=== PATIENT | female | born 1980 | race Caucasian/White ===

== ENCOUNTER → 2016-07-18 | Outpatient (REF) | payer OTHER | LOC: M SFHCWAGY 09:18 | PROVIDERS: ATTEND Nurse Practitioner Women's Health | DX: Z12.4 Encounter for screening for malignant neoplasm of cervix (principal) ==

== ENCOUNTER 2016-10-12 13:31 | Emergency (ER) | payer OTHER, BC ==
[~2016-10-12] VITALS: Ht 152.4 cm; Wt 81.8 kg
[2016-10-12] MEDS ORDERED: HUMI40KI2 (13:40)
--- NOTE | 2016-10-12 14:49 | REP ---
Left ankle series: Four views. History: Left ankle injury. Comparison left ankle radiographs are from November 25, 2006. Findings: There is moderate anterolateral soft-tissue swelling. Ankle mortise is intact. No fracture is seen. Impression: Soft-tissue swelling. No fracture seen. Signed by Brandt Poon MD 10/12/2016 04:23 P
[2016-10-12 14:56] VITALS: BP 152/88
[2016-10-12] MEDS ORDERED: IBUPROFEN 600 MG TAB PO ONE (15:00)
== END 2016-10-12 15:06 | disposition home or self-care (01) ==
LOC: M ED 13:31
DX: S93.402A Sprain of unspecified ligament of left ankle, initial encounter (principal); W10.9XXA Fall (on) (from) unspecified stairs and steps, initial encounter; Y92.89 Other specified places as the place of occurrence of the external cause; Y93.01 Activity, walking, marching and hiking; Y99.0 Civilian activity done for income or pay; K50.90 Crohn's disease, unspecified, without complications; Z79.899 Other long term (current) drug therapy

== ENCOUNTER → 2017-01-03 | Outpatient (REF) | payer OTHER ==
[~2017-01-03] MED LIST: HUMI40KI2
== END ==
LOC: M SFHCCAPE 14:36
PROVIDERS: ATTEND Physician Assistant
DX: J02.9 Acute pharyngitis, unspecified (principal)

== ENCOUNTER → 2017-01-25 | Outpatient (CLI) | payer BC, OTHER ==
--- NOTE | 2017-01-25 17:06 | REP ---
CHEST X-RAY: CLINICAL: Dyspnea. Bronchitis. TECHNIQUE: PA and lateral. COMPARISON: 12/15/2011 The mediastinum and cardiac silhouette normal. Scoliosis identified. Lung cortes are clear without focal consolidation, effusion or pneumothorax. Coarsened interstitial markings may reflect bronchitis or reactive airway disease. Evidence for prior cholecystectomy. IMPRESSION: Coarsened interstitial markings may reflect bronchitis and/or chronic reactive airway disease. No focal consolidation.
== END ==
LOC: M CLY 08:46
PROVIDERS: ATTEND Physician Assistant
DX: J20.9 Acute bronchitis, unspecified (principal)

== ENCOUNTER 2017-02-02 08:23 | Emergency (ER) | payer BC, OTHER ==
[~2017-02-02] VITALS: Ht 152.4 cm; Wt 90.0 kg
[2017-02-02] MEDS ORDERED: PRED10PA2 PO (09:09)
[2017-02-02] MEDS ORDERED: BENZ100C5 PO (09:09)
[2017-02-02] MEDS ORDERED: DOXY-278 PO (09:09)
[2017-02-02] MEDS ORDERED: ONDANSETRON 4MG/2ML VIAL (J2405) IV ONE (09:30)
[2017-02-02] MEDS ORDERED: NS 1,000 ML IV ONE (09:30)
[2017-02-02 09:44] LABS: BASO % 0.3 % (0.0-1.0); EOS # 0.1 10^3/uL (0.0-0.50); EOS % 0.4 % (0.0-3.0); IMMATURE GRANULOCYTE % 1.3 % (0-0); LYMPH % 6.9 % (24.0-44.0); MEAN CORPUSCULAR HEMOGLOBIN 29.9 pg (27.0-33.0); MEAN CORPUSCULAR HGB CONC 33.3 g/dl (32.0-36.5); MEAN CORPUSCULAR VOLUME 89.7 fl (80.0-96.0); MONO # 0.8 10^3/uL (0.0-0.8); MONO % 5.9 % (0.0-5.0); NEUTROPHILS % 85.2 % (36.0-66.0); PLATELET COUNT, AUTOMATED 285 10^3/uL (150-450); RED CELL DISTRIBUTION WIDTH 13.6 % (11.5-14.5); WHITE BLOOD COUNT 14.1 10^3/uL (4.0-10.0)
[2017-02-02] MEDS ORDERED: MORPHINE 4 MG/ML 1ML SYRINGE IV ONE (09:45)
[2017-02-02 10:20] LABS: ALBUMIN 3.8 GM/DL (3.2-5.2); ALBUMIN/GLOBULIN RATIO 0.86 (1.00-1.93); ALKALINE PHOSPHATASE 51 U/L (45-117); ALT/SGPT 36 U/L (12-78); ANION GAP 9 MEQ/L (8-16); AST/SGOT 13 U/L (7-37); BILIRUBIN,TOTAL 0.8 MG/DL (0.2-1.0); BLOOD UREA NITROGEN 16 MG/DL (7-18); CALCIUM LEVEL 8.7 MG/DL (8.5-10.1); CARBON DIOXIDE LEVEL 26 MEQ/L (21-32); CHLORIDE LEVEL 106 MEQ/L (98-107); CREATININE FOR GFR 0.97 MG/DL (0.55-1.02); GLOMERULAR FILTRATION RATE > 60.0 (>60); GLUCOSE, FASTING 129 MG/DL (70-105); POTASSIUM SERUM 3.9 MEQ/L (3.5-5.1); SODIUM LEVEL 141 MEQ/L (136-145); TOTAL PROTEIN 8.2 GM/DL (6.4-8.2)
--- NOTE | 2017-02-02 10:44 | REP ---
KUB ABDOMEN AND PELVIS: Two KUB films of abdomen and pelvis are performed. There is no radiographic evidence of small bowel dilatation, with no radiographic evidence of obstruction. Metallic clips are seen in the right upper quadrant. There is a tiny phlebolith in the right pelvis. Visualized osseous structures appear unremarkable except for slight curvature of the thoracolumbar spine convex to the left. IMPRESSION: No evidence of bowel obstruction. Signed by Palomo Leong MD 02/02/2017 04:58 P
[2017-02-02] MEDS ORDERED: ZOFR4TAB3 PO (12:17)
[2017-02-02 12:23] VITALS: BP 124/67
== END 2017-02-02 12:26 | disposition home or self-care (01) ==
LOC: M ED 08:23
DX: A08.4 Viral intestinal infection, unspecified (principal); E86.0 Dehydration; K50.90 Crohn's disease, unspecified, without complications; Z79.52 Long term (current) use of systemic steroids; Z79.899 Other long term (current) drug therapy; Z79.2 Long term (current) use of antibiotics
CPT/HCPCS: 74000; 80053; 81001; 83690; 85025; 96374; 96375; 99284; J2405

== ENCOUNTER → 2017-03-14 | Outpatient (CLI) | payer BC, OTHER ==
[2017-03-16 08:07] LABS: QUANTIFERON GOLD TB Negative (Negative); TB Test (QFT) Antigen 0.02 IU/mL (.); TB Test (QFT) Mitogen >10.00 IU/mL (.); TB Test (QFT) Nil 0.02 IU/mL (.)
== END ==
LOC: M LAB 13:17
DX: K50.90 Crohn's disease, unspecified, without complications (principal)
CPT/HCPCS: 36415

== ENCOUNTER → 2017-07-24 | Outpatient (REF) | payer OTHER ==
[2017-07-27 14:16] LABS: HPV HYBRID CAPTURE II Negative (Negative)
== END ==
LOC: M SFHCWAGY 11:48
DX: Z12.4 Encounter for screening for malignant neoplasm of cervix (principal)

== ENCOUNTER → 2017-07-30 | Outpatient (REF) | payer OTHER | LOC: M SFHCCAPE 15:08 | DX: J02.9 Acute pharyngitis, unspecified (principal) ==

== ENCOUNTER 2017-09-06 06:47 | Emergency (ER) | payer BC, OTHER ==
[2017-09-06 07:26] LABS: BASO % 0.5 % (0.0-1.0); EOS # 0.3 10^3/uL (0.0-0.50); EOS % 4.1 % (0.0-3.0); HEMATOCRIT 39.9 % (36.0-47.0); HEMOGLOBIN 12.8 g/dl (12.0-15.5); IMMATURE GRANULOCYTE % 0.3 % (0-3.0); LYMPH # 1.7 10^3/uL (1.5-4.5); LYMPH % 26.1 % (24.0-44.0); MEAN CORPUSCULAR HEMOGLOBIN 27.7 pg (27.0-33.0); MEAN CORPUSCULAR HGB CONC 32.1 g/dl (32.0-36.5); MEAN CORPUSCULAR VOLUME 86.4 fl (80.0-96.0); MONO # 0.9 10^3/uL (0.0-0.8); NEUTROPHILS # 3.6 10^3/uL (1.8-7.7); PLATELET COUNT, AUTOMATED 321 10^3/uL (150-450); RED BLOOD COUNT 4.62 10^6/uL (4.00-5.40); RED CELL DISTRIBUTION WIDTH 13.2 % (11.5-14.5); WHITE BLOOD COUNT 6.6 10^3/uL (4.0-10.0)
[2017-09-06] MEDS: NS 1,000 ML IV (07:40)
[2017-09-06 07:43] LABS: ALBUMIN/GLOBULIN RATIO 0.79 (1.00-1.93); ALKALINE PHOSPHATASE 57 U/L (45-117); ALT/SGPT 23 U/L (12-78); ANION GAP 8 MEQ/L (8-16); AST/SGOT 16 U/L (7-37); BILIRUBIN,TOTAL 0.1 MG/DL (0.2-1.0); BLOOD UREA NITROGEN 16 MG/DL (7-18); CALCIUM LEVEL 8.4 MG/DL (8.5-10.1); CARBON DIOXIDE LEVEL 23 MEQ/L (21-32); CHLORIDE LEVEL 112 MEQ/L (98-107); CREATININE FOR GFR 0.69 MG/DL (0.55-1.30); GLOMERULAR FILTRATION RATE > 60.0 (>60); GLUCOSE, FASTING 114 MG/DL (70-100); LIPASE 195 U/L (73-393); POTASSIUM SERUM 4.5 MEQ/L (3.5-5.1); SODIUM LEVEL 143 MEQ/L (136-145); TOTAL PROTEIN 6.8 GM/DL (6.4-8.2)
[2017-09-06] MEDS: ONDANSETRON 4MG/2ML VIAL (J2405) IV (07:45)
[2017-09-06] MEDS: KETOROLAC 30 MG/ML VIAL (J1885) IV (07:45)
[2017-09-06 08:10] LABS: KETONE, URINE AUTO RFX NEGATIVE (NEGATIVE); LEUKOCYTE ESTERASE UR AUTO RFX 3+ (NEGATIVE); MUCUS, URINE RFX SMALL (NEGATIVE); NITRITE, URINE AUTO RFX NEGATIVE (NEGATIVE); RBC, URINE AUTO RFX 9 /HPF (0-3); SPECIFIC GRAVITY UR AUTO RFX 1.013 (1.002-1.035); SQUAM EPITHELIAL CELL UR AURFX 3 /HPF (0-6); WBC, URINE AUTO RFX 9 /HPF (0-3)
[2017-09-06] MEDS ORDERED: ISOVUE-370 76% 100ML VIAL (Q9967) As Ordered (08:12)
== END 2017-09-06 10:42 | disposition home or self-care (01) ==
LOC: M ED 06:47
DX: K50.00 Crohn's disease of small intestine without complications (principal); K76.89 Other specified diseases of liver
CPT/HCPCS: J2405

== ENCOUNTER → 2017-09-25 | Outpatient (REF) | payer OTHER ==
[2017-09-25 16:54] LABS: APPEARANCE, URINE HAZY (CLEAR); BACTERIA, URINE AUTO NEGATIVE (NEGATIVE); BILIRUBIN, URINE AUTO NEGATIVE (NEGATIVE); BLOOD, URINE BLOOD 1+ (NEGATIVE); CALCIUM OXALATE CRYSTALS MODERATE; COLOR, URINE YELLOW (YELLOW); GLUCOSE, URINE (UA) AUTO NEGATIVE (NEGATIVE); KETONE, URINE AUTO NEGATIVE (NEGATIVE); LEUKOCYTE ESTERASE, URINE AUTO NEGATIVE (NEGATIVE); MUCUS, URINE SMALL (NEGATIVE); NITRITE, URINE AUTO NEGATIVE (NEGATIVE); PROTEIN, URINE AUTO NEGATIVE (NEGATIVE); RBC, URINE AUTO 0 /HPF (0-3); SPECIFIC GRAVITY URINE AUTO 1.025 (1.002-1.035); SQUAMOUS EPITHELIAL CELL UR AU 1 /HPF (0-6); UROBILINOGEN, URINE AUTO 0.2 mg/dL (0.0-2.0); WBC, URINE AUTO 1 /HPF (0-3)
== END ==
LOC: M SFHCCAPE 11:22
DX: R10.9 Unspecified abdominal pain (principal)

== ENCOUNTER → 2017-10-02 | Outpatient (REF) | payer OTHER ==
[2017-10-02 17:25] LABS: BASO % 0.2 % (0.0-1.0); EOS # 0.1 10^3/uL (0.0-0.50); EOS % 0.8 % (0.0-3.0); HEMATOCRIT 39.5 % (36.0-47.0); HEMOGLOBIN 12.5 g/dl (12.0-15.5); IMMATURE GRANULOCYTE % 0.6 % (0-3.0); LYMPH # 2.9 10^3/uL (1.5-4.5); LYMPH % 21.6 % (24.0-44.0); MEAN CORPUSCULAR HEMOGLOBIN 27.9 pg (27.0-33.0); MEAN CORPUSCULAR HGB CONC 31.6 g/dl (32.0-36.5); MEAN CORPUSCULAR VOLUME 88.2 fl (80.0-96.0); MONO # 0.8 10^3/uL (0.0-0.8); MONO % 5.9 % (0.0-5.0); NEUTROPHILS # 9.5 10^3/uL (1.8-7.7); NEUTROPHILS % 70.9 % (36.0-66.0); PLATELET COUNT, AUTOMATED 311 10^3/uL (150-450); RED BLOOD COUNT 4.48 10^6/uL (4.00-5.40); WHITE BLOOD COUNT 13.3 10^3/uL (4.0-10.0)
[2017-10-02 17:49] LABS: FOLATE 6.9 NG/ML; TOTAL 25(OH) VITAMIN D 22.1 NG/ML (30.0-100.0); VITAMIN B12 LEVEL 398 PG/ML
[2017-10-02 18:10] LABS: ALBUMIN 2.8 GM/DL (3.2-5.2); ALBUMIN/GLOBULIN RATIO 0.74 (1.00-1.93); ALKALINE PHOSPHATASE 46 U/L (45-117); ALT/SGPT 21 U/L (12-78); ANION GAP 9 MEQ/L (8-16); AST/SGOT 10 U/L (7-37); BILIRUBIN,TOTAL 0.3 MG/DL (0.2-1.0); BLOOD UREA NITROGEN 13 MG/DL (7-18); CALCIUM LEVEL 8.6 MG/DL (8.5-10.1); CARBON DIOXIDE LEVEL 27 MEQ/L (21-32); CHLORIDE LEVEL 108 MEQ/L (98-107); GLOMERULAR FILTRATION RATE > 60.0 (>60); GLUCOSE, FASTING 90 MG/DL (70-100); POTASSIUM SERUM 3.5 MEQ/L (3.5-5.1); SODIUM LEVEL 144 MEQ/L (136-145); TOTAL PROTEIN 6.6 GM/DL (6.4-8.2)
[2017-10-03 06:42] LABS: CONTROL LINE MONO RF C INT CTR LINE PRESENT; MONO REFLEX EBV COMP NEGATIVE (NEGATIVE)
[2017-10-05 00:06] LABS: EBV VIRAL CAPSID AG IgM <36.0 U/mL (0.0-35.9)
== END ==
LOC: M SFHCCAPE 11:30
DX: R53.83 Other fatigue (principal); Z20.828 Contact with and (suspected) exposure to other viral communicable diseases

== ENCOUNTER → 2017-10-02 | Outpatient (REF) | payer OTHER ==
[2017-10-02 19:18] LABS: C REACTIVE PROTEIN QUANTITATIV 1.26 MG/DL (0.00-0.30)
[2017-10-08 11:14] LABS: ANSER ADA #3170 SEE SEPARATE REPORT
[2017-10-09 08:17] LABS: Monitr Crohn's Disease SEE SEPARATE REPORT
== END ==
LOC: M LABDRWCV 17:23
DX: K50.90 Crohn's disease, unspecified, without complications (principal); R10.31 Right lower quadrant pain; R11.10 Vomiting, unspecified

== ENCOUNTER → 2017-10-15 | Outpatient (REF) | payer OTHER ==
[2017-10-15 16:33] LABS: BASO % 0.3 % (0.0-1.0); EOS # 0.2 10^3/uL (0.0-0.50); HEMATOCRIT 38.3 % (36.0-47.0); HEMOGLOBIN 12.1 g/dl (12.0-15.5); LYMPH % 28.6 % (24.0-44.0); MEAN CORPUSCULAR HEMOGLOBIN 27.3 pg (27.0-33.0); MEAN CORPUSCULAR HGB CONC 31.6 g/dl (32.0-36.5); MEAN CORPUSCULAR VOLUME 86.3 fl (80.0-96.0); MONO # 0.9 10^3/uL (0.0-0.8); MONO % 12.2 % (0.0-5.0); NEUTROPHILS # 3.9 10^3/uL (1.8-7.7); NEUTROPHILS % 54.9 % (36.0-66.0); PLATELET COUNT, AUTOMATED 290 10^3/uL (150-450); RED BLOOD COUNT 4.44 10^6/uL (4.00-5.40); RED CELL DISTRIBUTION WIDTH 15.4 % (11.5-14.5); WHITE BLOOD COUNT 7.1 10^3/uL (4.0-10.0)
== END ==
LOC: M SFHCCAPE 07:30
DX: R53.83 Other fatigue (principal)

== ENCOUNTER → 2018-06-24 | Outpatient (REF) | payer OTHER ==
[~2018-06-24] MED LIST changes: +BENZ-18 PO; +CIPR-249 PO; +DOXY-350 PO; +HYDR-3715 PO; +PRED10PA2 PO; +PRED20TA PO; +ZOFR4TAB14 PO
[2018-06-24 18:37] LABS: ALT/SGPT 34 U/L (12-78)
== END ==
LOC: M LABDRWCV 16:06
PROVIDERS: ATTEND Nurse Practitioner
DX: M45.9 Ankylosing spondylitis of unspecified sites in spine (principal)

== ENCOUNTER → 2019-05-13 | Outpatient (REF) | payer OTHER ==
[2019-05-13 11:57] LABS: BASO # 0.1 10^3/uL (0.0-0.2); BASO % 0.6 % (0.0-1.0); EOS # 0.2 10^3/uL (0.0-0.5); EOS % 2.5 % (0.0-3.0); HEMATOCRIT 42.4 % (36.0-47.0); HEMOGLOBIN 13.8 g/dl (12.0-15.5); LYMPH # 2.1 10^3/uL (1.5-5.0); LYMPH % 24.4 % (24.0-44.0); MEAN CORPUSCULAR HEMOGLOBIN 31.2 pg (27.0-33.0); MEAN CORPUSCULAR HGB CONC 32.5 g/dl (32.0-36.5); MEAN CORPUSCULAR VOLUME 95.7 fl (80.0-96.0); MONO # 0.6 10^3/uL (0.0-0.8); MONO % 7.4 % (0.0-5.0); NEUTROPHILS # 5.6 10^3/uL (1.5-8.5); NEUTROPHILS % 64.8 % (36.0-66.0); PLATELET COUNT, AUTOMATED 228 10^3/uL (150-450); RED BLOOD COUNT 4.43 10^6/uL (4.00-5.40); WHITE BLOOD COUNT 8.6 10^3/uL (4.0-10.0)
[2019-05-13 12:06] LABS: ALBUMIN 3.6 GM/DL (3.2-5.2); ALT/SGPT 50 U/L (12-78); C REACTIVE PROTEIN QUANTITATIV < 0.30 MG/DL (0.00-0.30); CREATININE FOR GFR 0.73 MG/DL (0.55-1.30); GLOMERULAR FILTRATION RATE > 60.0 (>58)
[2019-05-13 12:30] LABS: ERYTHROCYTE SEDIMENTATION RATE 6 mm/hr (0-20)
== END ==
LOC: M LABDRAWC 11:25
PROVIDERS: ATTEND Physician Assistant
DX: M45.9 Ankylosing spondylitis of unspecified sites in spine (principal); Z79.899 Other long term (current) drug therapy

== ENCOUNTER → 2019-06-20 | Outpatient (CLI) | payer BC, OTHER ==
--- NOTE | 2019-06-20 14:30 | REP ---
REASON FOR EXAM: Hip pain. No trauma. No priors. There is slight asymmetric hip joint space narrowing without buttressing or marginal osteophytosis. There is a minimal femoral head cam deformity. IMPRESSION: Chronic changes as described above. Electronically Signed by Florian Elliott DO 06/20/2019 04:10 P
== END ==
LOC: M CLY 13:24
PROVIDERS: ATTEND Nurse Practitioner
DX: M25.552 Pain in left hip (principal)

== ENCOUNTER → 2020-03-03 | Outpatient (REF) | payer OTHER | LOC: M SFHCCLAY 09:12 | PROVIDERS: ATTEND Physician Assistant | DX: R05 Cough (principal) ==

== ENCOUNTER → 2020-06-01 | Outpatient (REF) | payer OTHER ==
[2020-06-01 17:08] LABS: BASO # 0.1 10^3/uL (0.0-0.2); BASO % 0.8 % (0.0-1.0); EOS # 0.3 10^3/uL (0.0-0.5); EOS % 3.4 % (0.0-3.0); HEMOGLOBIN 13.2 g/dl (12.0-15.5); LYMPH # 2.4 10^3/uL (1.5-5.0); LYMPH % 31.6 % (24.0-44.0); MEAN CORPUSCULAR HEMOGLOBIN 30.6 pg (27.0-33.0); MEAN CORPUSCULAR HGB CONC 32.2 g/dl (32.0-36.5); MEAN CORPUSCULAR VOLUME 95.1 fl (80.0-96.0); MONO # 0.7 10^3/uL (0.0-0.8); MONO % 9.3 % (2.0-8.0); NEUTROPHILS # 4.1 10^3/uL (1.5-8.5); NEUTROPHILS % 54.6 % (36.0-66.0); PLATELET COUNT, AUTOMATED 271 10^3/uL (150-450); RED BLOOD COUNT 4.31 10^6/uL (4.00-5.40); WHITE BLOOD COUNT 7.6 10^3/uL (4.0-10.0)
[2020-06-01 17:26] LABS: HEMOGLOBIN A1c 5.5 %
[2020-06-01 17:53] LABS: ALBUMIN 3.6 GM/DL (3.2-5.2); ALT/SGPT 38 U/L (12-78); BILIRUBIN,TOTAL 0.3 MG/DL (0.2-1.0); BLOOD UREA NITROGEN 19 MG/DL (7-18); CARBON DIOXIDE LEVEL 24 MEQ/L (21-32); CHLORIDE LEVEL 105 MEQ/L (98-107); CHOLESTEROL LEVEL 178 MG/DL (<200); CHOLESTEROL RISK RATIO 2.542 (<5); CREATININE FOR GFR 0.78 MG/DL (0.55-1.30); GLOMERULAR FILTRATION RATE > 60.0 (>58); GLUCOSE, FASTING 110 MG/DL (70-100); HDL CHOLESTEROL 70 MG/DL (>40); LDL CHOLESTEROL 93 MG/DL (<100); NON-HDL-C 108 MG/DL; POTASSIUM SERUM 4.7 MEQ/L (3.5-5.1); SODIUM LEVEL 137 MEQ/L (136-145); TOTAL 25(OH) VITAMIN D 43.6 NG/ML (30.0-100.0); TRIGLYCERIDES LEVEL 74 MG/DL (<150)
== END ==
LOC: M SFHCCAPE 08:33
PROVIDERS: ATTEND Physician Assistant
DX: E78.5 Hyperlipidemia, unspecified (principal); E66.01 Morbid (severe) obesity due to excess calories; E55.9 Vitamin D deficiency, unspecified

== ENCOUNTER → 2020-07-06 | Outpatient (REF) | payer OTHER | LOC: M SFHCWAGY 18:43 | PROVIDERS: ATTEND Nurse Practitioner Women's Health | DX: Z12.4 Encounter for screening for malignant neoplasm of cervix (principal) | CPT/HCPCS: 87624; G0123 ==

== ENCOUNTER → 2020-07-06 | Outpatient (CLI) | payer BC, OTHER ==
--- NOTE | 2020-07-06 12:31 | REPMRS ---
Patient History The patient states she had a clinical breast exam in June 2020. Family history of pancreatic cancer at age 50 or over in paternal grandfather, ovarian cancer at age 50 in maternal aunt. No Hormone Replacement Therapy No breast complaints today Patient signed the MRS sheet No covid vaccine Priors on PACS Patient Identification Verified Patient denied Digital Woman Screen Mammo: July 06, 2020 - Exam #: [id number] Bilateral CC and MLO view(s) were taken. Technologist: Eleanor Dolan, Technologist Prior study comparison: September 10, 2018, bilateral digital woman screen mammo performed at [facility]. FINDINGS: The breast tissue is almost entirely fat. The Volpara volumetric breast density category is: A. There has been no change in the appearance of the mammogram from the prior studies. There is no interval development of dominant mass, architectural distortion, or grouped microcalcification typical of malignancy. 3-D tomosynthesis shows no additional findings. Assessment: BI-RADS/ACR category 1 mammogram. Negative Mammogram. Recommendation Routine screening mammogram of both breasts in 1 year (for women over age 40). This patient's [facility] Lifetime Breast Cancer RIsk is estimated at 11.2 %. This mammogram was interpreted with the aid of an FDA-approved computer-aided dectection system. Electronically Signed By: Aydin Poon MD 07/06/20 [id number]
== END ==
LOC: M WHC 11:14
PROVIDERS: ATTEND Nurse Practitioner Women's Health
DX: Z12.31 Encounter for screening mammogram for malignant neoplasm of breast (principal)

== ENCOUNTER → 2021-03-17 | Outpatient (REF) | payer OTHER | LOC: M SFHCCAPE 13:33 | PROVIDERS: ATTEND Physician Assistant | DX: R21 Rash and other nonspecific skin eruption (principal) ==

== ENCOUNTER → 2021-06-22 | Outpatient (CLI) | payer BC, OTHER | LOC: M PLAIMG 08:16 | PROVIDERS: ATTEND Physician Assistant | DX: M54.2 Cervicalgia (principal) ==

== ENCOUNTER → 2021-07-13 | Outpatient (CLI) | payer BC, OTHER | LOC: M CLY 08:51 | PROVIDERS: ATTEND Physician Assistant | DX: M25.561 Pain in right knee (principal) ==

== ENCOUNTER → 2022-03-20 | Outpatient (REF) | payer BC, OTHER ==
[~2022-03-20] MED LIST changes: -DOXY-350 PO; +DOXY-444 PO
[2022-03-20 18:06] LABS: BASO # 0.1 10^3/uL (0.0-0.2); BASO % 0.8 % (0.0-1.0); EOS # 0.3 10^3/uL (0.0-0.5); HEMATOCRIT 40.9 % (36.0-47.0); HEMOGLOBIN 13.2 g/dl (12.0-15.5); LYMPH # 2.7 10^3/uL (1.5-5.0); LYMPH % 35.1 % (24.0-44.0); MEAN CORPUSCULAR HEMOGLOBIN 30.1 pg (27.0-33.0); MEAN CORPUSCULAR HGB CONC 32.3 g/dl (32.0-36.5); MEAN CORPUSCULAR VOLUME 93.4 fl (80.0-96.0); MONO # 0.6 10^3/uL (0.0-0.8); MONO % 7.6 % (2.0-8.0); PLATELET COUNT, AUTOMATED 210 10^3/uL (150-450); RED BLOOD COUNT 4.38 10^6/uL (4.00-5.40); WHITE BLOOD COUNT 7.8 10^3/uL (4.0-10.0)
[2022-03-20 18:26] LABS: C REACTIVE PROTEIN QUANTITATIV < 0.40 MG/DL (<1.0)
[2022-03-20 18:27] LABS: ALT/SGPT 25 U/L (7.0-40); AST/SGOT 19 U/L (<34); BLOOD UREA NITROGEN 14 MG/DL (9-23); CREATININE FOR GFR 0.68 MG/DL (0.55-1.30); GLOMERULAR FILTRATION RATE > 60.0 (>58)
[2022-03-20 18:32] LABS: ERYTHROCYTE SEDIMENTATION RATE 16 mm/hr (0-20)
== END ==
LOC: M LABDRWCV 16:48
PROVIDERS: ATTEND Nurse Practitioner
DX: M45.9 Ankylosing spondylitis of unspecified sites in spine (principal); M54.2 Cervicalgia; Z79.899 Other long term (current) drug therapy

== ENCOUNTER 2022-09-12 16:04 | Emergency (ER) | payer BC, OTHER ==
[~2022-09-12] VITALS: Ht 152.4 cm; Wt 98.6 kg
[2022-09-12 17:22] LABS: BASO % 0.3 % (0.0-1.0); EOS # 0.1 10^3/uL (0.0-0.5); EOS % 1.3 % (0.0-3.0); HEMATOCRIT 40.8 % (36.0-47.0); HEMOGLOBIN 12.8 g/dl (12.0-15.5); LYMPH # 1.4 10^3/uL (1.5-5.0); LYMPH % 14.7 % (24.0-44.0); MEAN CORPUSCULAR HEMOGLOBIN 28.3 pg (27.0-33.0); MEAN CORPUSCULAR HGB CONC 31.4 g/dl (32.0-36.5); MEAN CORPUSCULAR VOLUME 90.1 fl (80.0-96.0); MONO % 10.2 % (2.0-8.0); NEUTROPHILS # 7.1 10^3/uL (1.5-8.5); NEUTROPHILS % 73.2 % (36.0-66.0); PLATELET COUNT, AUTOMATED 267 10^3/uL (150-450); RED BLOOD COUNT 4.53 10^6/uL (4.00-5.40); WHITE BLOOD COUNT 9.7 10^3/uL (4.0-10.0)
[2022-09-12 18:17] LABS: BLOOD UREA NITROGEN 9 MG/DL (9-23); CALCIUM LEVEL 8.4 MG/DL (8.5-10.1); CARBON DIOXIDE LEVEL 24 MMOL/L (20-31); CHLORIDE LEVEL 107 MMOL/L (98-107); CREATININE FOR GFR 0.67 MG/DL (0.55-1.30); GLOMERULAR FILTRATION RATE > 60.0 (>58); GLUCOSE, FASTING 123 MG/DL (60-100); SODIUM LEVEL 140 MMOL/L (136-145)
[2022-09-12 18:21] LABS: THYROID STIMULATING HORMONE 1.366 uIU/ML (0.55-4.78)
[2022-09-12 19:15] VITALS: TEMP 98.8
[2022-09-12] MEDS ORDERED: NS 1,000 ML IV ONE ×2 (19:35)
[2022-09-12 21:04] VITALS: O2SAT 99
[2022-09-12 22:04] VITALS: BP 136/88
== END 2022-09-12 22:06 | disposition home or self-care (01) ==
LOC: EDBD 16:04 → M ED 16:04
DX: R55 Syncope and collapse (principal); K50.90 Crohn's disease, unspecified, without complications; Z79.52 Long term (current) use of systemic steroids; Z79.899 Other long term (current) drug therapy

== ENCOUNTER → 2022-09-19 | Outpatient (REF) | payer OTHER ==
[2022-09-19 18:31] LABS: APPEARANCE, URINE HAZY (CLEAR); BACTERIA, URINE AUTO NEGATIVE (NEGATIVE); BILIRUBIN, URINE AUTO NEGATIVE (NEGATIVE); BLOOD, URINE BLOOD 1+ (NEGATIVE); CALCIUM OXALATE CRYSTALS LARGE; COLOR, URINE YELLOW (YELLOW); GLUCOSE, URINE (UA) AUTO NEGATIVE (NEGATIVE); KETONE, URINE AUTO NEGATIVE (NEGATIVE); LEUKOCYTE ESTERASE, URINE AUTO 2+ (NEGATIVE); MUCUS, URINE SMALL (NEGATIVE); NITRITE, URINE AUTO NEGATIVE (NEGATIVE); PROTEIN, URINE AUTO NEGATIVE (NEGATIVE); RBC, URINE AUTO 1 /HPF (0-3); SPECIFIC GRAVITY URINE AUTO 1.019 (1.002-1.035); SQUAMOUS EPITHELIAL CELL UR AU 3 /HPF (0-6); UROBILINOGEN, URINE AUTO 0.2 mg/dL (0.0-2.0); WBC, URINE AUTO 5 /HPF (0-3)
[2022-09-19 18:38] LABS: BASO % 0.5 % (0.0-1.0); EOS # 0.3 10^3/uL (0.0-0.5); EOS % 4.9 % (0.0-3.0); HEMATOCRIT 36.7 % (36.0-47.0); HEMOGLOBIN 11.7 g/dl (12.0-15.5); LYMPH # 1.6 10^3/uL (1.5-5.0); LYMPH % 28.9 % (24.0-44.0); MEAN CORPUSCULAR HGB CONC 31.9 g/dl (32.0-36.5); MEAN CORPUSCULAR VOLUME 87.8 fl (80.0-96.0); MONO % 17.9 % (2.0-8.0); NEUTROPHILS # 2.6 10^3/uL (1.5-8.5); NEUTROPHILS % 47.3 % (36.0-66.0); PLATELET COUNT, AUTOMATED 353 10^3/uL (150-450); RED BLOOD COUNT 4.18 10^6/uL (4.00-5.40); WHITE BLOOD COUNT 5.5 10^3/uL (4.0-10.0)
[2022-09-19 19:05] LABS: ALBUMIN 3.4 G/DL (3.2-5.2); ALKALINE PHOSPHATASE 52 U/L (46-116); ALT/SGPT 23 U/L (7.0-40); AST/SGOT 12 U/L (<34); BILIRUBIN,TOTAL 0.4 MG/DL (0.3-1.2); BLOOD UREA NITROGEN 11 MG/DL (9-23); CALCIUM LEVEL 8.7 MG/DL (8.5-10.1); CARBON DIOXIDE LEVEL 24 MMOL/L (20-31); CHLORIDE LEVEL 103 MMOL/L (98-107); CREATININE FOR GFR 0.76 MG/DL (0.55-1.30); GLOMERULAR FILTRATION RATE > 60.0 (>58); GLUCOSE, FASTING 104 MG/DL (60-100); IRON (FE) 17 UG/DL (50-170); PERCENT SATURATION 4.7 % (13.2-45.0); POTASSIUM SERUM 4.3 MMOL/L (3.5-5.1); SODIUM LEVEL 138 MMOL/L (136-145); TOTAL IRON BINDING CAPACITY 359 UG/DL (250-425); TOTAL PROTEIN 6.5 G/DL (5.7-8.2)
== END ==
LOC: M SFHCCAPE 07:27
PROVIDERS: ATTEND Physician Assistant
DX: R55 Syncope and collapse (principal); R42 Dizziness and giddiness

== ENCOUNTER → 2022-10-31 | Outpatient (REF) | payer BC, OTHER | LOC: M SFHCCAPE 14:29 | PROVIDERS: ATTEND Physician Assistant Medical | DX: J20.9 Acute bronchitis, unspecified (principal) ==

== ENCOUNTER → 2023-02-22 | Outpatient (CLI) | payer BC | LOC: M CLY 11:20 | PROVIDERS: ATTEND Physician Assistant | DX: R10.9 Unspecified abdominal pain (principal) ==

== ENCOUNTER → 2023-03-05 | Outpatient (REF) | payer BC, OTHER ==
[2023-03-05 17:25] LABS: BASO % 0.2 % (0.0-1.0); EOS # 0.2 10^3/uL (0.0-0.5); EOS % 1.2 % (0.0-3.0); HEMATOCRIT 34.3 % (36.0-47.0); HEMOGLOBIN 10.5 g/dl (12.0-15.5); LYMPH # 3.6 10^3/uL (1.5-5.0); LYMPH % 29.5 % (24.0-44.0); MEAN CORPUSCULAR HEMOGLOBIN 25.4 pg (27.0-33.0); MEAN CORPUSCULAR HGB CONC 30.6 g/dl (32.0-36.5); MEAN CORPUSCULAR VOLUME 82.9 fl (80.0-96.0); MONO # 1.3 10^3/uL (0.0-0.8); MONO % 10.9 % (2.0-8.0); NEUTROPHILS # 6.9 10^3/uL (1.5-8.5); NEUTROPHILS % 56.9 % (36.0-66.0); PLATELET COUNT, AUTOMATED 365 10^3/uL (150-450); RED BLOOD COUNT 4.14 10^6/uL (4.00-5.40); WHITE BLOOD COUNT 12.1 10^3/uL (4.0-10.0)
[2023-03-05 17:43] LABS: LIPASE 43 U/L (12-53)
[2023-03-05 17:45] LABS: ALBUMIN 2.4 G/DL (3.2-5.2); ALKALINE PHOSPHATASE 44 U/L (46-116); ALT/SGPT 14 U/L (7.0-40); APPEARANCE, URINE CLOUDY (CLEAR); AST/SGOT < 8 U/L (<34); BACTERIA, URINE AUTO 1+ (NEGATIVE); BILIRUBIN, URINE AUTO NEGATIVE (NEGATIVE); BILIRUBIN,TOTAL 0.2 MG/DL (0.3-1.2); BLOOD UREA NITROGEN 14 MG/DL (9-23); BLOOD, URINE BLOOD NEGATIVE (NEGATIVE); CALCIUM LEVEL 8.3 MG/DL (8.5-10.1); CALCIUM OXALATE CRYSTALS LARGE; CARBON DIOXIDE LEVEL 28 MMOL/L (20-31); CHLORIDE LEVEL 108 MMOL/L (98-107); COLOR, URINE RED (YELLOW); CREATININE FOR GFR 0.69 MG/DL (0.55-1.30); GLOMERULAR FILTRATION RATE > 60.0 (>58); GLUCOSE, FASTING 85 MG/DL (60-100); GLUCOSE, URINE (UA) AUTO NEGATIVE (NEGATIVE); KETONE, URINE AUTO NEGATIVE (NEGATIVE); LEUKOCYTE ESTERASE, URINE AUTO 3+ (NEGATIVE); MUCUS, URINE SMALL (NEGATIVE); NITRITE, URINE AUTO NEGATIVE (NEGATIVE); PROTEIN, URINE AUTO NEGATIVE (NEGATIVE); RBC, URINE AUTO 2 /HPF (0-3); SODIUM LEVEL 139 MMOL/L (136-145); SPECIFIC GRAVITY URINE AUTO 1.019 (1.002-1.035); SQUAMOUS EPITHELIAL CELL UR AU 4 /HPF (0-6); TOTAL PROTEIN 5.5 G/DL (5.7-8.2); UROBILINOGEN, URINE AUTO 0.2 mg/dL (0.0-2.0); WBC, URINE AUTO 21 /HPF (0-3)
== END ==
LOC: M SFHCCAPE 10:50
PROVIDERS: ATTEND Physician Assistant Medical
DX: R10.13 Epigastric pain (principal)

== ENCOUNTER → 2023-04-09 | Outpatient (REF) | payer BC, OTHER ==
[2023-04-09 17:58] LABS: BASO % 0.3 % (0.0-1.0); EOS # 0.2 10^3/uL (0.0-0.5); EOS % 1.7 % (0.0-3.0); HEMATOCRIT 34.7 % (36.0-47.0); HEMOGLOBIN 10.6 g/dl (12.0-15.5); LYMPH # 3.1 10^3/uL (1.5-5.0); LYMPH % 28.6 % (24.0-44.0); MEAN CORPUSCULAR HEMOGLOBIN 24.7 pg (27.0-33.0); MEAN CORPUSCULAR HGB CONC 30.5 g/dl (32.0-36.5); MEAN CORPUSCULAR VOLUME 80.9 fl (80.0-96.0); MONO # 1.2 10^3/uL (0.0-0.8); NEUTROPHILS # 6.2 10^3/uL (1.5-8.5); PLATELET COUNT, AUTOMATED 462 10^3/uL (150-450); RED BLOOD COUNT 4.29 10^6/uL (4.00-5.40); WHITE BLOOD COUNT 10.9 10^3/uL (4.0-10.0)
[2023-04-09 18:21] LABS: ALBUMIN 2.2 G/DL (3.2-5.2); ALKALINE PHOSPHATASE 47 U/L (46-116); ALT/SGPT 11 U/L (7.0-40); AST/SGOT 10 U/L (<34); BILIRUBIN,TOTAL 0.3 MG/DL (0.3-1.2); BLOOD UREA NITROGEN 9 MG/DL (9-23); CALCIUM LEVEL 8.4 MG/DL (8.5-10.1); CARBON DIOXIDE LEVEL 28 MMOL/L (20-31); CHLORIDE LEVEL 104 MMOL/L (98-107); GLOMERULAR FILTRATION RATE > 60.0 (>58); GLUCOSE, FASTING 89 MG/DL (60-100); IRON (FE) 15 UG/DL (50-170); MAGNESIUM LEVEL 1.8 MG/DL (1.8-2.4); POTASSIUM SERUM 4.4 MMOL/L (3.5-5.1); SODIUM LEVEL 138 MMOL/L (136-145); TOTAL IRON BINDING CAPACITY 250 UG/DL (250-425); TOTAL PROTEIN 5.5 G/DL (5.7-8.2)
[2023-04-09 18:22] LABS: FERRITIN 22.9 NG/ML (7.3-270.7)
== END ==
LOC: M SFHCCAPE 09:54
PROVIDERS: ATTEND Physician Assistant Medical
DX: E61.1 Iron deficiency (principal); E83.42 Hypomagnesemia

== ENCOUNTER → 2023-06-14 | Outpatient (REF) | payer BC, OTHER ==
[2023-06-14 19:02] LABS: FERRITIN 20.1 NG/ML (7.3-270.7); TOTAL 25(OH) VITAMIN D 26.8 NG/ML (20.0-100.0)
[2023-06-14 19:04] LABS: PERCENT SATURATION 4.1 % (13.2-45.0)
== END ==
LOC: M LABDRWCV 16:44
PROVIDERS: ATTEND Internal Medicine Gastroenterology
DX: K50.90 Crohn's disease, unspecified, without complications (principal); R10.84 Generalized abdominal pain; R19.7 Diarrhea, unspecified

== ENCOUNTER → 2023-06-21 | Outpatient (CLI) | payer BC ==
[~2023-06-21] MED LIST changes: +DOXY-440 PO; -DOXY-444 PO
== END ==
LOC: M RAD 08:52
PROVIDERS: ATTEND Physician Assistant
DX: K50.90 Crohn's disease, unspecified, without complications (principal)

== ENCOUNTER → 2023-08-21 | Outpatient (REF) | payer BC ==
[2023-08-21 17:39] LABS: BLOOD UREA NITROGEN 5 MG/DL (9-23); CALCIUM LEVEL 8.3 MG/DL (8.5-10.1); CARBON DIOXIDE LEVEL 26 MMOL/L (20-31); CHLORIDE LEVEL 109 MMOL/L (98-107); CREATININE FOR GFR 0.68 MG/DL (0.55-1.30); GLOMERULAR FILTRATION RATE > 60.0 (>58); GLUCOSE, FASTING 100 MG/DL (60-100); POTASSIUM SERUM 4.6 MMOL/L (3.5-5.1); SODIUM LEVEL 139 MMOL/L (136-145)
== END ==
LOC: M SFHCCAPE 07:50
PROVIDERS: ATTEND Physician Assistant Medical
DX: M54.50 Low back pain, unspecified (principal); R31.9 Hematuria, unspecified